=== PATIENT | male | born 1980 | race Caucasian/White ===

== ENCOUNTER 2017-11-04 10:17 | Emergency (ER) | payer OTHER ==
[2017-11-04 10:34] VITALS: O2SAT 98
[2017-11-04] MEDS ORDERED: Eye-Stream Solution ONE (10:37)
[2017-11-04] MEDS ORDERED: Fluor-I-Strip/Ful-Flo OP ONE ×2 (10:37→10:38)
[2017-11-04] MEDS ORDERED: Eye-Stream Solution OP ONE (10:38)
[2017-11-04] MEDS ORDERED: TETRACAINE 0.5% STERI-UNIT SOL OP STA (10:38)
[2017-11-04] MEDS ORDERED: TETRACAINE 0.5% STERI-UNIT SOL OP ONE (10:38)
--- NOTE | 2017-11-04 11:00 | ERPHSYRPT ---
- History of Present Illness Time Seen by Provider: 11/04/17 10:30 Source: patient Exam Limitations: clinical condition Patient Subjective Stated Complaint: pt states he believes he has a piece of metal in left eye. Triage Nursing Assessment: pt pink, warm, dry. left eye red, with watery drainage. Physician History: PATIENT STATES WHILE HITTING METAL WITH A HAMMER, A PIECE OF METAL STRUCK PATIENT INTO HIS LEFT EYE HAS ASSOCIATED EYE PAIN, CAN ONLY VISUALIZE SPECTS OF LIGHT AND DARKNESS. HAS ASSOCIATED TEARING. Timing/Duration: today Location: left eye Severity: mild Apparent Injury: yes Associated Symptoms: pain, foreign body sensation, decreased vision Visual Assistive Devices: None Chemical Exposure: No Trauma: Yes Welding Arc/Tanning Bed Exposure: No Allergies/Adverse Reactions: No Known Drug Allergies Allergy (Unverified 11/04/17 10:34) Home Medications: No Reportable Medications [No Reported Medications] 11/04/17 [History] Hx Tetanus, Diphtheria Vaccination/Date Given: Yes (up to date) Hx Influenza Vaccination/Date Given: No Hx Pneumococcal Vaccination/Date Given: No Immunizations Up to Date: Yes - Review of Systems Constitutional: No Fever, No Chills Eyes: Eye Pain, Vision Changes, Foreign Body Sensation Ears, Nose, & Throat: No Symptoms Respiratory: No Symptoms, No Cough, No Dyspnea Cardiac: No Symptoms, No Chest Pain, No Edema, No Syncope Abdominal/Gastrointestinal: No Symptoms, No Abdominal Pain, No Nausea, No Vomiting, No Diarrhea Genitourinary Symptoms: No Dysuria Musculoskeletal: No Back Pain, No Neck Pain Skin: No Rash Neurological: No Dizziness, No Focal Weakness, No Sensory Changes Psychological: No Symptoms Endocrine: No Symptoms All Other Systems: Reviewed and Negative - Past Medical History Pertinent Past Medical History: No - Past Surgical History Past Surgical History: Yes Musculoskeletal: Orthopedic Surgery - Social History Smoking Status: Never smoker Exposure to second hand smoke: No Drug Use: none Patient Lives Alone: Yes - Nursing Vital Signs Nursing Vital Signs: Initial Vital Signs Temperature 97.9 F 11/04/17 10:24 Pulse Rate 89 11/04/17 10:24 Respiratory Rate 20 11/04/17 10:24 Blood Pressure 132/91 11/04/17 10:24 O2 Sat by Pulse Oximetry 98 11/04/17 10:24 Pain Scale Pain Intensity 0 - Physical Exam General Appearance: mild distress Vision Acuity Degree Evaluation Phase: Uncorrected Vision Acuity Right Eye: 20/20 Vision Acuity Left Eye: 20/100 Eye Exam: right eye: normal inspection, left eye: corneal abrasion (OVER PUPIL) , ocular penetration (UNABLE TO VISUALE FUNDUS), bilateral eye: PERRL, EOMI Neck Exam: normal inspection Respiratory Exam: normal breath sounds Cardiovascular Exam: regular rate/rhythm SpO2 Interpretation: normal SpO2: 98 Oxygen Delivery: Room Air - CT Exams Other CT Interpretation: Discussed w/radiologist (ORBITS-LEFT ORBIT DEMONSTRATES A 3MM POSTERIOR MEDIAL INTRALUMINAL METALLIC DENSITY WITH TINY AIR BUBBLES. THE LENS ALSO APPEARS DISPLACED LATERALLY. OPTIC NERVES AND EXTRA OCULAR MUSCLES APPEAR BILATERALLY SYMMETRIC, NO ACUTE FRACTURE OR SUSPICIOUS BONY LESIONS. ORBITAL ROOF, CARABALLO AND FLOORS INTACT) Ordered Tests: Active Orders 24 hr Category Date Time Status IV Insertion STAT Care 11/04/17 12:06 Active ORBITS WITHOUT CONTRAST [CT] Stat Exams 11/04/17 10:49 Completed Medication Summary Generic Name Dose Route Start Last Admin Trade Name Freq PRN Reason Stop Dose Admin Sodium Chloride 1,000 mls @ 100 mls/hr 11/04/17 12:15 11/04/17 12:31 Sodium Chloride 0.9% 1000 Ml IV 12/04/17 12:14 100 mls/hr .Q10H WILL Administration Discontinued Medications Generic Name Dose Route Start Last Admin Trade Name Freq PRN Reason Stop Dose Admin Hydrocodone Bitart/Acetaminophen 1 tab 11/04/17 11:24 11/04/17 11:37 [place] 10/325 Mg Tablet PO 11/04/17 11:25 1 tab STAT ONE Administration Hydrocodone Bitart/Acetaminophen Confirm 11/04/17 11:35 [place] 10/325 Mg Tablet Administered 11/04/17 11:36 Dose 1 tab .ROUTE .STK-MED ONE Eye Irrigation Solution Confirm 11/04/17 10:37 Eye-Stream Solution Administered 11/04/17 10:38 Dose 30 ml .ROUTE .STK-MED ONE Eye Irrigation Solution 15 ml 11/04/17 10:38 11/04/17 10:39 Eye-Stream Solution OP 11/04/17 10:39 15 ml STAT ONE Administration Fluorescein Sodium Confirm 11/04/17 10:37 Ehppt-F-Psklo/Ful-Carlos Administered 11/04/17 10:38 Dose 1 mg OP .STK-MED ONE Fluorescein Sodium 1 mg 11/04/17 10:38 11/04/17 10:39 Pxgwk-R-Eqwgl/Ful-Carlos OP 11/04/17 10:39 1 mg STAT ONE Administration Hydromorphone HCl 1 mg 11/04/17 12:06 11/04/17 12:31 Hydromorphone 1 Mg/Ml Ampule IV 11/04/17 12:07 1 mg STAT ONE Administration Hydromorphone HCl Confirm 11/04/17 12:23 Hydromorphone 1 Mg/Ml Ampule Administered 11/04/17 12:24 Dose 1 mg .ROUTE .STK-MED ONE Piperacillin Sod/Tazobactam Sod Confirm 11/04/17 12:24 Zosyn 3.375gm/100 Ml D5w Administered 11/04/17 12:25 Dose 3.375 gm in 100 mls @ ud IV .STK-MED ONE Piperacillin Sod/Tazobactam Sod 3.375 gm in 100 mls @ 200 mls/hr 11/04/17 12: 33 11/04/17 12:33 Zosyn 3.375gm/100 Ml D5w IV 11/04/17 13:02 200 mls/hr STAT STA Administration Ondansetron HCl 4 mg 11/04/17 12:06 11/04/17 12:27 Zofran 4 Mg/2 Ml Vial IV 11/04/17 12:07 4 mg STAT ONE Administration Ondansetron HCl Confirm 11/04/17 12:23 Zofran 4 Mg/2 Ml Vial Administered 11/04/17 12:24 Dose 4 mg .ROUTE .STK-MED ONE Tetracaine HCl 4 ml 11/04/17 10:38 11/04/17 10:39 Tetracaine 0.5% Steri-Unit Chanel OP 11/04/17 10:39 4 ml STAT STA Administration Tetracaine HCl Confirm 11/04/17 10:38 Tetracaine 0.5% Steri-Unit Chanel Administered 11/04/17 10:39 Dose 4 ml OP .STK-MED ONE - Progress Progress: pain not gone completely Progress Note: 11/04/17 11:47 NORCO 10/325 ORALLY, IV NORMAL SALINE 200ML/HR, ZOSYN 3.375GM IVPB, ZOFRAN 4MG , DILAUDID 1MG IV 11/04/17 13:00, DISCUSSED WITH [facility], DR [address] SAFETY ENGINEER [id number] AND SCHEDULED APPOINTMEMT WITH RETINAL SPECIALIST DR CADENA AT [facility] ON THE [address] FLOOR. AT [address]15 [facility] IS UNABLE TO ACCOMMODATE PATIENT. 11/04/17 13:17 11/04/17 13:36- CONSULTED [facility] IN EMERGENCY ROOM DR IBARRA AT 1330 ACCEPTS TRANSFER VIA PRIVATE VEHICLE 11/04/17 13:[address] Other (DISCUSSED WITH DR TIAN AT 1325 OF [facility] EMERGENCY ACCEPTS TRANSFER VIA PRIVATE VEHICLE) - Departure Time of Disposition: 13:43 Departure Disposition: Home Clinical Impression: LEFT ORBIT PENETRATING FOREIGN BODY Condition: Stable Critical Care Time: No Referrals: JERRY PACK MD [Primary Care Provider] - Additional Instructions: AVOID EATING OR DRINKING ENROUTE TO [facility]. GO DIRECTLY TO [facility] 6TH FLOOR OPHTHAMOLOGY CLINIC WITH RETINAL SPECIALIST DR CADENA AFTER LEAVING EMERGENCY ROOM.
[2017-11-04] MEDS ORDERED: Norco 10/325 MG Tablet PO ONE (11:24)
--- NOTE | 2017-11-04 11:30 | XRAY ---
Indication: Left eye blurriness following injury with metal object. Multiple contiguous axial images obtained through the orbits. Sagittal and coronal reformatted images obtained. Comparison: None Left orbit demonstrates a 3 mm posterior medial intraluminal metallic density with tiny air bubbles. The lens also appears displaced laterally. Optic nerves and extra ocular muscles appear bilaterally symmetric. No acute fracture or suspicious bony lesions. Orbital roof, wallace, and floors intact. Paranasal sinuses and nasal passages are clear. Minimal nasal septal deviation to the left. Remaining visualized noncontrasted soft tissues including base of the brain unremarkable. Impression: Left orbit penetrating injury with intraluminal metallic foreign body and displaced lens. CTDI 44.60
[2017-11-04] MEDS ORDERED: Norco 10/325 MG Tablet ONE (11:35)
[2017-11-04] MEDS ORDERED: Zofran 4 MG/2 ML VIAL IV ONE (12:06)
[2017-11-04] MEDS ORDERED: Hydromorphone 1 mg/ml Ampule IV ONE (12:06)
[2017-11-04] MEDS ORDERED: Sodium Chloride 0.9% 1000 ML 1,000 ML IV SCH (12:15)
[2017-11-04] MEDS ORDERED: Zofran 4 MG/2 ML VIAL ONE (12:23)
[2017-11-04] MEDS ORDERED: Sodium Chloride 0.9% 1000 ML 1,000 ML ONE (12:23)
[2017-11-04] MEDS ORDERED: Hydromorphone 1 mg/ml Ampule ONE (12:23)
[2017-11-04] MEDS ORDERED: Zosyn 3.375GM/100 Ml D5W 3.375 GM/100 ML IVPB IV ONE (12:24)
[2017-11-04] MEDS ORDERED: Zosyn 3.375GM/100 Ml D5W 3.375 GM/100 ML IVPB IV STA (12:33)
[2017-11-04 13:41] VITALS: BP 133/74; PULSE 78
== END 2017-11-04 13:48 | disposition short-term general hospital (02) ==
LOC: ED 10:17
DX: T15.82XA Foreign body in other and multiple parts of external eye, left eye, initial encounter (principal); X58.XXXA Exposure to other specified factors, initial encounter
CPT/HCPCS: 36000; 70480; 96360; 96361; 96365; 96374; 96375; 99285; J1170; J2405; J2543; A9270-GY